=== PATIENT | male | born 1950 | race Two or more races ===

== ENCOUNTER 2018-05-24 10:11 | Emergency (ER) | payer OTHER ==
[~2018-05-24] VITALS: Ht 182.9 cm; Wt 102.1 kg
== END 2018-05-24 13:56 | disposition home or self-care (01) ==
LOC: ER 10:11
DX: M25.572 Pain in left ankle and joints of left foot (principal)

== ENCOUNTER 2021-07-23 09:23 | Outpatient (CLI) | payer OTHER | END 2021-07-23 09:28 | disposition home or self-care (01) | LOC: RAD 09:23 | PROVIDERS: ATTEND Orthopaedic Surgery | DX: M10.072 Idiopathic gout, left ankle and foot (principal) ==

== ENCOUNTER 2022-04-03 11:14 | Outpatient (CLI) | payer OTHER | END 2022-04-03 11:20 | disposition home or self-care (01) | LOC: RAD 11:14 | PROVIDERS: ATTEND Orthopaedic Surgery | DX: M25.552 Pain in left hip (principal); M25.562 Pain in left knee ==

== ENCOUNTER 2022-04-11 08:36 | Outpatient (CLI) | payer OTHER | END 2022-04-11 08:52 | disposition home or self-care (01) | LOC: MRI 08:36 | PROVIDERS: ATTEND Orthopaedic Surgery | DX: M25.562 Pain in left knee (principal); M23.92 Unspecified internal derangement of left knee | CPT/HCPCS: 73718 ==

== ENCOUNTER 2023-01-03 09:34 | Outpatient (CLI) | payer OTHER | END 2023-01-03 09:35 | disposition home or self-care (01) | LOC: LAB 09:34 | PROVIDERS: ATTEND Orthopaedic Surgery | DX: M25.572 Pain in left ankle and joints of left foot (principal); T84.84XS Pain due to internal orthopedic prosthetic devices, implants and grafts, sequela; D68.8 Other specified coagulation defects ==

== ENCOUNTER 2023-01-24 11:12 | Outpatient (CLI) | payer OTHER | END 2023-01-24 11:14 | disposition home or self-care (01) | LOC: LAB 11:12 | PROVIDERS: ATTEND Internal Medicine Hematology & Oncology | DX: D68.8 Other specified coagulation defects (principal); D65 Disseminated intravascular coagulation [defibrination syndrome]; B20 Human immunodeficiency virus [HIV] disease ==

== ENCOUNTER 2023-03-05 08:12 | Outpatient (CLI) | payer OTHER | END 2023-03-05 08:13 | disposition home or self-care (01) | LOC: LAB 08:12 | PROVIDERS: ATTEND Orthopaedic Surgery | DX: D64.89 Other specified anemias (principal); E88.89 Other specified metabolic disorders; D68.8 Other specified coagulation defects; N39.0 Urinary tract infection, site not specified; A49.02 Methicillin resistant Staphylococcus aureus infection, unspecified site; E11.9 Type 2 diabetes mellitus without complications; Z76.89 Persons encountering health services in other specified circumstances; I49.9 Cardiac arrhythmia, unspecified; I10 Essential (primary) hypertension ==

== ENCOUNTER 2023-03-20 06:16 | Inpatient (IN) | payer OTHER ==
[~2023-03-20 06:16] MED LIST: FOLIC ACID0.8 M1 PO; LASIX40 MG PO; PREZCOBIX 8001 EACH PO; TIVICAY50 MG PO; ZESTRIL20 MG PO
[2023-03-20] MEDS ORDERED: CALCITRIOL0.25 MCG (14:32)
[2023-03-20] MEDS ORDERED: AMITRIPTYLINE100 MG (14:33)
[2023-03-20] MEDS ORDERED: OMEGA-3 ACID ETH1 GM (14:33)
[2023-03-20] MEDS ORDERED: FOLIC ACID1 MG (14:33)
[2023-03-21] MEDS ORDERED: CEFADROXIL500 MG PO (13:06)
== END 2023-03-21 16:37 | disposition home or self-care (01) | DRG 494 ==
LOC: CIR.AMB 06:16 → O/R 14:14 → SURH 15:01
PROVIDERS: ADMIT Orthopaedic Surgery; ATTEND Orthopaedic Surgery
PROC: 0SPG0JZ Removal of Synthetic Substitute from Left Ankle Joint, Open Approach (ICD-10-PCS; 2023-03-20)
PROC: 0SBG0ZZ Excision of Left Ankle Joint, Open Approach (ICD-10-PCS; 2023-03-20)
PROC: 0LQT0ZZ Repair Left Ankle Tendon, Open Approach (ICD-10-PCS; 2023-03-20)
PROC: 0QUM0JZ Supplement Left Tarsal with Synthetic Substitute, Open Approach (ICD-10-PCS; 2023-03-20)
PROC: 0SGG0JZ Fusion of Left Ankle Joint with Synthetic Substitute, Open Approach (ICD-10-PCS; principal; 2023-03-20 09:45)
DX: M19.072 Primary osteoarthritis, left ankle and foot (principal); S96.812A Strain of other specified muscles and tendons at ankle and foot level, left foot, initial encounter

== ENCOUNTER 2024-12-03 08:24 | Outpatient (CLI) | payer OTHER ==
[~2024-12-03 08:24] MED LIST changes: +AMITRIPTYLINE100 MG; +CALCITRIOL0.25 MCG; +CEFADROXIL500 MG PO; +FOLIC ACID1 MG; +OMEGA-3 ACID ETH1 GM
== END 2024-12-03 08:30 | disposition home or self-care (01) ==
LOC: RAD 08:24
PROVIDERS: ATTEND Orthopaedic Surgery
DX: M25.572 Pain in left ankle and joints of left foot (principal); M79.672 Pain in left foot